=== PATIENT | female | born 1995 | race Caucasian/White ===

== ENCOUNTER 2019-02-10 11:07 | Inpatient (IN) | payer MEDICAID ==
[2019-02-10 12:26] LABS: ADD UMIC NO; UR ASCORBIC ACID NEGATIVE (NEGATIVE); UR BILIRUBIN (Dip) 1+ mg/dL (NEGATIVE); UR BLOOD (Dip) NEGATIVE (NEGATIVE); UR CLARITY SLIGHTLY CLOUDY (CLEAR); UR COLOR AMBER (YELLOW); UR GLUCOSE (Dip) NEGATIVE (NEGATIVE); UR KETONES (Dip) NEGATIVE (NEGATIVE); UR LEUKOCYTE ESTERASE (Dip) NEGATIVE Leu/ul (NEGATIVE); UR NITRITE (Dip) NEGATIVE (NEGATIVE); UR RBC 0 /HPF (0-5); UR SPECIFIC GRAVITY (Dip) 1.015 (1.003-1.030); UR TOTAL PROTEIN (Dip) NEGATIVE (NEGATIVE); UR UROBILINOGEN (Dip) 2+ mg/dL (NEGATIVE); UR WBC 2 /HPF (0-5)
[2019-02-10] MEDS: LACTATED RINGER'S 1,000 ML IV (14:38)
[2019-02-10] MEDS: TERBUTALINE 1 MG/ML INJ SC (16:44)
[2019-02-10] MEDS: CEFTRIAXONE 1 GM/50 ML (PMX) 50 ML IVPB ×2 (17:31→19:00)
[2019-02-10 19:17] LABS: ADD MAN DIFF? NO
[2019-02-10 19:21] LABS: WHITE BLOOD COUNT 6.7 10^3/ul (4.8-10.8)
[2019-02-10 19:21] LABS: BASOPHILS % 0.4 % (0.0-2.0); EOSINOPHILS # 0.1 10^3/ul (0.0-0.5); EOSINOPHILS % 2.1 % (0.0-7.0); HEMATOCRIT 27.2 % (37.0-47.0); HEMOGLOBIN 9.4 g/dl (12.0-16.0); LYMPHOCYTES # 1.7 10^3/ul (0.8-2.9); LYMPHOCYTES % 25.1 % (15.0-51.0); MEAN CORPUSCULAR HEMOGLOBIN 32.1 pg (29.0-33.0); MEAN CORPUSCULAR HGB CONC 34.6 g/dl (32.0-37.0); MEAN CORPUSCULAR VOLUME 92.8 fl (82.0-101.0); MEAN PLATELET VOLUME 11.6 fl (7.4-10.4); MONOCYTE # 0.2 10^3/ul (0.3-0.9); MONOCYTES % 3.1 % (0.0-11.0); NEUTROPHIL # 4.6 10^3/ul (1.6-7.5); NEUTROPHILS % 68.9 % (39.0-77.0); PLATELET COUNT 232 10^3/UL (140-415); RED BLOOD COUNT 2.93 10^6/ul (4.20-5.40); RED CELL DISTRIBUTION WIDTH 12.6 % (11.5-14.5)
[2019-02-10 19:39] LABS: ALANINE AMINOTRANSFERASE 188 IU/L (13-69); ALBUMIN 3.1 g/dl (3.3-4.9); ALBUMIN/GLOBULIN RATIO 0.91; ALKALINE PHOSPHATASE 237 IU/L (42-121); ANION GAP 13 (5-13); ASPARTATE AMINO TRANSFERASE 139 IU/L (15-46); BILIRUBIN,INDIRECT 0.4 mg/dl (0-1.1); BILIRUBIN,TOTAL 0.4 mg/dl (0.2-1.3); BLOOD UREA NITROGEN 9 mg/dl (7-20); CALCIUM 8.6 mg/dl (8.4-10.2); CARBON DIOXIDE 22 mmol/L (21-31); CHLORIDE 104 mmol/L (97-110); CREATININE 0.52 mg/dl (0.44-1.00); Estimated GFR > 60 mL/min (>60); GLUCOSE 151 mg/dl (70-220); SODIUM 139 mmol/L (135-144); TOTAL PROTEIN 6.5 g/dl (6.1-8.1)
[2019-02-10 19:41] LABS: POTASSIUM 2.4 mmol/L (3.5-5.1)
[2019-02-10] MEDS: MAGNESIUM SULFATE 4 GM/100 ML 100 ML IV (20:32)
[2019-02-10] MEDS: MAGNESIUM SULFATE 20 GM/500 ML 500 ML IV (21:06)
[2019-02-10] MEDS: POTASSIUM CHLORIDE (SR) 10 MEQ TAB PO (21:45)
[2019-02-10] MEDS: BETAMET NA PHOS/AC(6 MG/ML) 2 ML INJ SYG IM (22:42)
[2019-02-11 01:55] LABS: MAGNESIUM 5.9 mg/dl (1.7-2.5)
[2019-02-11 03:27] LABS: POTASSIUM 2.9 mmol/L (3.5-5.1)
[2019-02-11] MEDS: SOD CHLORIDE 0.9% 1,000 ML IV ×2 (06:12→18:02)
[2019-02-11 06:52] LABS: MAGNESIUM 7.5 mg/dl (1.7-2.5)
[2019-02-11] MEDS: MAGNESIUM SULFATE 20 GM/500 ML 500 ML IV ×2 (07:35→21:50)
[2019-02-11] MEDS: POTASSIUM CHLORIDE (SR) 10 MEQ TAB PO ×2 (08:20→14:28)
[2019-02-11 12:33] LABS: POTASSIUM 3.3 mmol/L (3.5-5.1)
[2019-02-11 12:46] LABS: MAGNESIUM 6.7 mg/dl (1.7-2.5)
[2019-02-11] MEDS: CEFTRIAXONE 1 GM/50 ML (PMX) 50 ML IVPB (19:21)
[2019-02-11 19:23] LABS: POTASSIUM 3.6 mmol/L (3.5-5.1)
[2019-02-11 19:29] LABS: MAGNESIUM 6.9 mg/dl (1.7-2.5)
[2019-02-11] MEDS ORDERED: AL HYDROX/MG HYDROX/SIMETH 30 ML CUP PO (21:00)
[2019-02-11] MEDS ORDERED: ACETAMINOPHEN 325 MG TAB PO (21:00)
[2019-02-11 21:50] LABS: ALANINE AMINOTRANSFERASE 243 IU/L (13-69); ALBUMIN 3.3 g/dl (3.3-4.9); ALBUMIN/GLOBULIN RATIO 1.06; ALKALINE PHOSPHATASE 275 IU/L (42-121); ANION GAP 9 (5-13); ASPARTATE AMINO TRANSFERASE 209 IU/L (15-46); BILIRUBIN,INDIRECT 0.4 mg/dl (0-1.1); BILIRUBIN,TOTAL 0.4 mg/dl (0.2-1.3); BLOOD UREA NITROGEN 8 mg/dl (7-20); CARBON DIOXIDE 22 mmol/L (21-31); CHLORIDE 102 mmol/L (97-110); CREATININE 0.55 mg/dl (0.44-1.00); Estimated GFR > 60 mL/min (>60); GLUCOSE 153 mg/dl (70-220); POTASSIUM 3.6 mmol/L (3.5-5.1); SODIUM 133 mmol/L (135-144); TOTAL PROTEIN 6.4 g/dl (6.1-8.1)
[2019-02-11] MEDS: BETAMET NA PHOS/AC(6 MG/ML) 2 ML INJ SYG IM (22:45)
[2019-02-11 23:36] LABS: ADD MAN DIFF? NO
[2019-02-11 23:39] LABS: BASOPHILS % 0.2 % (0.0-2.0); EOSINOPHILS # 0.1 10^3/ul (0.0-0.5); EOSINOPHILS % 0.8 % (0.0-7.0); HEMATOCRIT 28.1 % (37.0-47.0); HEMOGLOBIN 9.5 g/dl (12.0-16.0); LYMPHOCYTES # 1.5 10^3/ul (0.8-2.9); LYMPHOCYTES % 22.9 % (15.0-51.0); MEAN CORPUSCULAR HEMOGLOBIN 31.8 pg (29.0-33.0); MEAN CORPUSCULAR HGB CONC 33.8 g/dl (32.0-37.0); MEAN PLATELET VOLUME 11.8 fl (7.4-10.4); MONOCYTE # 0.5 10^3/ul (0.3-0.9); MONOCYTES % 7.5 % (0.0-11.0); NEUTROPHIL # 4.3 10^3/ul (1.6-7.5); NEUTROPHILS % 67.8 % (39.0-77.0); PLATELET COUNT 258 10^3/UL (140-415); RED BLOOD COUNT 2.99 10^6/ul (4.20-5.40); RED CELL DISTRIBUTION WIDTH 12.9 % (11.5-14.5)
[2019-02-11 23:39] LABS: WHITE BLOOD COUNT 6.4 10^3/ul (4.8-10.8)
[2019-02-12] MEDS: LACTATED RINGER'S 1,000 ML IV ×6 (04:37→08:00)
[2019-02-12] MEDS: SOD CHLORIDE 0.9% 1,000 ML IV ×7 (06:05→09:14)
[2019-02-12 07:15] LABS: ALANINE AMINOTRANSFERASE 218 IU/L (13-69); ALBUMIN 3.1 g/dl (3.3-4.9); ALBUMIN/GLOBULIN RATIO 0.96; ALKALINE PHOSPHATASE 242 IU/L (42-121); ANION GAP 8 (5-13); ASPARTATE AMINO TRANSFERASE 183 IU/L (15-46); BILIRUBIN,INDIRECT 0.4 mg/dl (0-1.1); BILIRUBIN,TOTAL 0.4 mg/dl (0.2-1.3); BLOOD UREA NITROGEN 9 mg/dl (7-20); CALCIUM 6.5 mg/dl (8.4-10.2); CARBON DIOXIDE 21 mmol/L (21-31); CHLORIDE 107 mmol/L (97-110); CREATININE 0.47 mg/dl (0.44-1.00); Estimated GFR > 60 mL/min (>60); GLUCOSE 178 mg/dl (70-220); POTASSIUM 3.9 mmol/L (3.5-5.1); SODIUM 136 mmol/L (135-144); TOTAL PROTEIN 6.3 g/dl (6.1-8.1)
[2019-02-12] MEDS: TERBUTALINE 1 MG/ML INJ SC (07:55)
[2019-02-12] MEDS: POTASSIUM CHLORIDE (SR) 20 MEQ TAB PO ×2 (07:56→07:58)
[2019-02-12] MEDS: FERROUS SULFATE (EC) 325 MG TAB PO ×3 (07:58→21:00)
[2019-02-12 08:31] LABS: HAAIG REFLEX REFLEX FILED
[2019-02-12] MEDS: PRENATAL VITAMIN PO (09:13)
[2019-02-12 09:23] LABS: HEPATITIS B SURFACE ANTIGEN NEGATIVE (NEGATIVE)
[2019-02-12 09:41] LABS: HEPATITIS C VIRAL ANTIBODY NEGATIVE (NEGATIVE)
[2019-02-12 09:42] LABS: HEPATITIS B CORE ANTIBODY NEGATIVE (NEGATIVE)
[2019-02-12 10:12] LABS: ADD MAN DIFF? NO
[2019-02-12 10:14] LABS: WHITE BLOOD COUNT 5.2 10^3/ul (4.8-10.8)
[2019-02-12 10:14] LABS: BASOPHILS % 0.4 % (0.0-2.0); EOSINOPHILS % 0.2 % (0.0-7.0); HEMATOCRIT 29.4 % (37.0-47.0); HEMOGLOBIN 9.5 g/dl (12.0-16.0); LYMPHOCYTES % 19.5 % (15.0-51.0); MEAN CORPUSCULAR HEMOGLOBIN 33.1 pg (29.0-33.0); MEAN CORPUSCULAR HGB CONC 32.3 g/dl (32.0-37.0); MEAN CORPUSCULAR VOLUME 102.4 fl (82.0-101.0); MEAN PLATELET VOLUME 12.7 fl (7.4-10.4); MONOCYTE # 0.1 10^3/ul (0.3-0.9); MONOCYTES % 1.9 % (0.0-11.0); NEUTROPHILS % 76.9 % (39.0-77.0); PLATELET COUNT 265 10^3/UL (140-415); RED BLOOD COUNT 2.87 10^6/ul (4.20-5.40)
[2019-02-13] MEDS: PRENATAL VITAMIN PO (09:19)
[2019-02-13] MEDS: FERROUS SULFATE (EC) 325 MG TAB PO ×2 (09:19→22:06)
[2019-02-13] MEDS: URSODIOL 300 MG CAP PO (16:02)
[2019-02-13] MEDS: hydrOXYzine HCL 10 MG TAB NGT (16:02)
[2019-02-14] MEDS: hydrOXYzine HCL 10 MG TAB PO ×2 (05:33→17:03)
[2019-02-14] MEDS: URSODIOL 300 MG CAP PO ×3 (05:33→21:22)
[2019-02-14] MEDS: FERROUS SULFATE (EC) 325 MG TAB PO ×2 (08:53→21:22)
[2019-02-14] MEDS: PRENATAL VITAMIN PO (08:53)
[2019-02-14] MEDS ORDERED: hydrOXYzine HCL 10 MG TAB PO (12:00)
[2019-02-14 15:33] LABS: ALANINE AMINOTRANSFERASE 416 IU/L (13-69); ALBUMIN 3.4 g/dl (3.3-4.9); ALBUMIN/GLOBULIN RATIO 1.09; ALKALINE PHOSPHATASE 220 IU/L (42-121); ANION GAP 10 (5-13); ASPARTATE AMINO TRANSFERASE 318 IU/L (15-46); BILIRUBIN,INDIRECT 0.3 mg/dl (0-1.1); BILIRUBIN,TOTAL 0.3 mg/dl (0.2-1.3); BLOOD UREA NITROGEN 16 mg/dl (7-20); CALCIUM 9.6 mg/dl (8.4-10.2); CARBON DIOXIDE 25 mmol/L (21-31); CHLORIDE 98 mmol/L (97-110); CREATININE 0.67 mg/dl (0.44-1.00); Estimated GFR > 60 mL/min (>60); GLUCOSE 135 mg/dl (70-220); POTASSIUM 3.4 mmol/L (3.5-5.1); SODIUM 133 mmol/L (135-144); TOTAL PROTEIN 6.5 g/dl (6.1-8.1)
[2019-02-15] MEDS: hydrOXYzine HCL 10 MG TAB PO ×2 (05:30→18:28)
[2019-02-15] MEDS: URSODIOL 300 MG CAP PO ×3 (05:30→21:49)
[2019-02-15] MEDS: PRENATAL VITAMIN PO (08:45)
[2019-02-15] MEDS: FERROUS SULFATE (EC) 325 MG TAB PO ×2 (08:46→21:48)
[2019-02-16] MEDS: URSODIOL 300 MG CAP PO ×3 (06:49→22:02)
[2019-02-16] MEDS: FERROUS SULFATE (EC) 325 MG TAB PO ×2 (09:06→20:49)
[2019-02-16] MEDS: PRENATAL VITAMIN PO (09:06)
[2019-02-16] MEDS: hydrOXYzine HCL 10 MG TAB PO ×2 (09:08→22:02)
[2019-02-16 15:36] LABS: CHENODEOXYCHOLIC ACID 2.4 umol/L (< OR = 3.1); CHOLIC ACID 7.4 umol/L (< OR = 1.8); DEOXYCHOLIC ACID <0.5 umol/L (< OR = 2.4); TOTAL BILE ACIDS 9.8 umol/L (< OR = 6.8)
[2019-02-17] MEDS: URSODIOL 300 MG CAP PO ×3 (06:11→21:55)
[2019-02-17] MEDS: hydrOXYzine HCL 10 MG TAB PO (09:09)
[2019-02-17] MEDS: PRENATAL VITAMIN PO (09:09)
[2019-02-17] MEDS: FERROUS SULFATE (EC) 325 MG TAB PO ×2 (09:09→21:54)
[2019-02-17 09:14] LABS: ALANINE AMINOTRANSFERASE 348 IU/L (13-69); ALBUMIN 3.7 g/dl (3.3-4.9); ALBUMIN/GLOBULIN RATIO 1.12; ALKALINE PHOSPHATASE 211 IU/L (42-121); ANION GAP 10 (5-13); ASPARTATE AMINO TRANSFERASE 152 IU/L (15-46); BILIRUBIN,INDIRECT 0.4 mg/dl (0-1.1); BILIRUBIN,TOTAL 0.4 mg/dl (0.2-1.3); BLOOD UREA NITROGEN 15 mg/dl (7-20); CALCIUM 9.6 mg/dl (8.4-10.2); CARBON DIOXIDE 28 mmol/L (21-31); CHLORIDE 95 mmol/L (97-110); Estimated GFR > 60 mL/min (>60); GLUCOSE 120 mg/dl (70-220); SODIUM 133 mmol/L (135-144)
[2019-02-17 09:15] LABS: POTASSIUM 2.8 mmol/L (3.5-5.1)
[2019-02-17] MEDS: POTASSIUM CHLORIDE (SR) 20 MEQ TAB PO (10:50)
[2019-02-18] MEDS: POTASSIUM CHLORIDE (SR) 20 MEQ TAB PO (03:11)
[2019-02-18] MEDS: URSODIOL 300 MG CAP PO (06:12)
[2019-02-18 08:41] LABS: ALANINE AMINOTRANSFERASE 258 IU/L (13-69); ALBUMIN 3.6 g/dl (3.3-4.9); ALKALINE PHOSPHATASE 230 IU/L (42-121); ANION GAP 9 (5-13); ASPARTATE AMINO TRANSFERASE 96 IU/L (15-46); BILIRUBIN,INDIRECT 0.4 mg/dl (0-1.1); BILIRUBIN,TOTAL 0.4 mg/dl (0.2-1.3); BLOOD UREA NITROGEN 14 mg/dl (7-20); CALCIUM 9.5 mg/dl (8.4-10.2); CARBON DIOXIDE 28 mmol/L (21-31); CHLORIDE 96 mmol/L (97-110); CREATININE 0.51 mg/dl (0.44-1.00); Estimated GFR > 60 mL/min (>60); GLUCOSE 110 mg/dl (70-220); POTASSIUM 3.8 mmol/L (3.5-5.1); SODIUM 133 mmol/L (135-144); TOTAL PROTEIN 7.2 g/dl (6.1-8.1)
[2019-02-18] MEDS: PRENATAL VITAMIN PO (09:56)
[2019-02-18] MEDS: FERROUS SULFATE (EC) 325 MG TAB PO (09:56)
== END 2019-02-18 11:50 | disposition home or self-care (01) | DRG 831 ==
LOC: OBT 11:07 → PP1 02-11 23:57 → L-D 11:07 → OBT 18:50 → L-D 19:01
DX: O99.612 Diseases of the digestive system complicating pregnancy, second trimester (principal); K83.1 Obstruction of bile duct; O26.612 Liver and biliary tract disorders in pregnancy, second trimester; O99.012 Anemia complicating pregnancy, second trimester; Z3A.27 27 weeks gestation of pregnancy
CPT/HCPCS: 36415; 76705; 76815; 76817; 76818; 80053; 81001; 81003; 83735; 83789; 84132; 85025; 86704; 86709; 86803; 87086; 87340; 96360; 96361; 96368; 96372

== ENCOUNTER 2019-02-19 12:43 | Outpatient (CLI) | payer MEDICAID | END 2019-02-19 14:25 | disposition home or self-care (01) | LOC: L-D 12:43 → OBT 12:46 → L-D 12:46 → OBT 14:25 | DX: O36.8330 Maternal care for abnormalities of the fetal heart rate or rhythm, third trimester, not applicable or unspecified (principal); O26.613 Liver and biliary tract disorders in pregnancy, third trimester; K83.1 Obstruction of bile duct; Z3A.28 28 weeks gestation of pregnancy | CPT/HCPCS: 76818 ==